=== PATIENT | male | born 1985 | race Caucasian/White ===

== ENCOUNTER 2024-02-15 05:33 | Emergency (ER) | payer OTHER ==
[~2024-02-15] VITALS: Ht 175.3 cm; Wt 113.4 kg
[2024-02-15] MEDS ORDERED: Prozac20 MG PO (05:42)
[2024-02-15] MEDS ORDERED: Ondansetron HCl 2 MG / ML 2ML Vial IV ONE (05:45)
[2024-02-15] MEDS ORDERED: Loperamide HCl 2 MG Cap PO ONE (05:45)
[2024-02-15] MEDS ORDERED: NS 1,000 ML IV SCH (05:45)
[2024-02-15] MEDS ORDERED: ONDA4ODT MM (05:49)
[2024-02-15] MEDS ORDERED: LOPE2C PO (05:49)
[2024-02-15 06:03] LABS: Calcium, Ionized (POC) 1.09 mmol/L (1.10-1.46); Chloride (POC) 105 mmol/L (98-108); Creatinine (POC) 0.9 mg/dL (0.8-1.3); Glucose (ISTAT POC) 124 mg/dL (70-99); Hemoglobin (POC) 15.3 g/dL (13.5-17.5); Potassium (POC) 3.5 mmol/L (3.5-5.5); Sodium (POC) 137 mmol/L (135-148); Total CO2 (POC) 25 mmol/L (21-32)
== END 2024-02-15 06:47 | disposition home or self-care (01) ==
LOC: EDBD 05:33 → ER 05:33
PROVIDERS: Emergency Medicine
DX: L55.1 Sunburn of second degree (principal); R11.2 Nausea with vomiting, unspecified; R19.7 Diarrhea, unspecified; E86.0 Dehydration; Z79.899 Other long term (current) drug therapy
CPT/HCPCS: 80047; 85014; 96361; 96374; 99283-25; A9270; J2405; J7030